=== PATIENT | female | born 1995 | race Caucasian/White ===

== ENCOUNTER 2018-04-20 21:20 | Emergency (ER) | payer OTHER, BC ==
[~2018-04-20] VITALS: Ht 162.6 cm; Wt 70.9 kg
[2018-04-20 22:59] VITALS: BP 119/82
== END 2018-04-20 22:59 | disposition home or self-care (01) ==
LOC: EME 21:20
DX: S81.811A Laceration without foreign body, right lower leg, initial encounter (principal); W25.XXXA Contact with sharp glass, initial encounter; Y93.E9 Activity, other interior property and clothing maintenance; Z23 Encounter for immunization
CPT/HCPCS: 99281; 99284